=== PATIENT | female | born 1990 | race Two or more races ===

== ENCOUNTER 2017-03-20 09:18 | Day surgery (SDC) | payer OTHER, MEDICAID ==
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
[~2017-03-20 09:18] MED LIST: Buffered Lidocaine 0.9% SYRIN* 5 ML/SYR SYRINGE INTRADERM ONE; Midazolam* 1 MG/ML 5 ML VIAL (5 MG) ONE; fentaNYL* 50 MCG/ML 2 ML VIAL (100 MCG VIAL) ONE
[2017-03-20] MEDS ORDERED: HYDROmorphone INJ* 1 MG/ML CARPUJECT SYRINGE IV PRN (09:58)
[2017-03-20] MEDS ORDERED: DiMENhydriNATE IV* 50 MG/ML VIAL IV PUSH PRN (09:58)
[2017-03-20] MEDS ORDERED: oxyCODONE TAB* 5 MG TAB PO PRN (09:58)
[2017-03-20] MEDS ORDERED: Acetaminophen TAB* 325 MG PO PRN (09:58)
[2017-03-20] MEDS ORDERED: Famotidine IV* 10 MG/ML 2 ML (20 mg) ONE (09:59)
[2017-03-20] MEDS ORDERED: ceFAZolin 2 GM PREMIX (*) 50 ML IVPB ONE (10:01)
[2017-03-20] MEDS: Famotidine IV* 10 MG/ML 2 ML (20 mg) IV ONE ×2 (10:11→10:18)
[2017-03-20] MEDS ORDERED: Bupivacaine 0.25% SDV* 30 ML ONE (11:12)
[2017-03-20] MEDS ORDERED: Lidocaine 1% MPF wEPI 200,000* 30 ML SDV ONE (11:12)
[2017-03-20] MEDS ORDERED: Ketorolac INJ* 30 MG/ML 1 ML VIAL ONE (11:50)
[2017-03-20] MEDS ORDERED: Propofol* 10 MG/ML 20 ML BTL IV PUSH ONE (11:50)
[2017-03-20] MEDS ORDERED: Dexamethasone IV* 4 MG/ML 1 ML (4 MG) ONE (11:50)
[2017-03-20] MEDS ORDERED: Lidocaine 2% PF * 5 ML VIAL ONE (11:50)
[2017-03-20] MEDS ORDERED: Ondansetron INJ* 2 MG/ML VIAL ONE (11:50)
[2017-03-20] MEDS ORDERED: DiMENhydriNATE IV* 50 MG/ML VIAL ONE (11:51)
[2017-03-20 12:54] VITALS: BP 104/74
--- NOTE | 2017-03-21 01:02 | OP ---
DATE OF OPERATION: 03/20/17 - [facility] DATE OF : 89 ATTENDING PHYSICIAN: Patricia Tadeo MD PROFESSOR OF COMMUNICATION: KANDICE Arce. An vector control assistant was needed for the entirety of the case to help with positioning, retraction, and was utilized throughout all portions of the case. ANESTHESIOLOGIST: Dr. Kelly. ANESTHESIA: General PRE-OP DIAGNOSIS: Left knee lateral meniscal tear. POST-OP DIAGNOSIS: Left knee lateral meniscal tear with a small amount of mild chondral fraying of the lateral compartment, lateral meniscal cyst. OPERATIVE PROCEDURE: Left knee arthroscopy with chondroplasty of the lateral femoral condyle, partial lateral meniscectomy and decompression of lateral meniscal cyst. INDICATIONS: Krystal Sal is a 26-year-old female who has had a multiple year history of bilateral knee pain as she had a previous meniscal tear and meniscal cyst. She has failed conservative treatment. She has persistent mechanical symptoms. She had MRIs to confirm this previously and she repeated the MRIs while being here in [place], which demonstrated lateral meniscal tears with a lateral meniscal cyst. Risks and benefits of surgery were discussed at length that included but not limited to bleeding, infection, damage to nerves, vessels, surrounding structures, wound nonhealing, persistent pain, need for further surgery, scarring, stiffness, incomplete relief of symptoms, risk of anesthesia, risk of DVT. She has elected to proceed. DESCRIPTION OF PROCEDURE: The patient was greeted in the preoperative area by the attending surgeon. The correct extremity was marked and consent was confirmed. The patient was then brought back to the operating suite. The patient was placed in the supine position on the operating table. She underwent general anesthesia and LMA intubation after which the left leg was prepped and draped in the usual sterile fashion and non-sterile tourniquet was placed high on the proximal thigh. The lateral post was positioned. The leg was prepped and draped with chlorhexidine soap scrub and alcohol wipe and a final prep with ChloraPrep. After appropriate surgical pause indicating site, side, procedure, administration of antibiotics, the knee was intra-articularly injected with 1% lidocaine with epi. The lateral portal was made sharply with the 11 blade. The scope was introduced into the joint. Joint was examined. There were grade 0 changes to the patellofemoral joint. The medial and lateral gutters were without tearing, but there was a small area of evidence of chondral damage along the very edges of the medial and lateral compartment with some fraying; however, the vast majority of the cartilage was grade 0 to 1. The scope was brought into the notch. The medial portal was made in an outside-in fashion. The ligamentum was removed. The ACL and PCL were intact. The medial meniscus was intact with evidence of previous anterior mild tearing, but it had healed back. The medial compartments have grade 0 to 1 changes on the weightbearing zone. The lateral compartment had an unstable complex lateral meniscus tear in the body. This had unstable flaps with a small partially parrot beak style tear. The biters and carolina were used to debride this back. The cyst was then evacuated and decompressed with the carolina and biters. Images were obtained to show the fluid release into the joint. The meniscus was debrided back to a stable layer. Final images were obtained. All fluid and debris were removed from the joint. The wounds were copiously irrigated with sterile saline. The wounds were closed with 3-0 nylon in interrupted fashion. Sterile dressings were applied. The knee was intra-articularly injected with 0.25% Marcaine plain. She was awoken from anesthesia and transferred to the PACU in stable condition. POSTOPERATIVE PLAN: She will be weightbearing as tolerated with crutches for the first 3 to 5 days, discharged on pain medications as well as aspirin for the first 10 days. She will be allowed range of motion as tolerated. I will see her back in 10 to 14 days. DVT prophylaxis considered, but deferred due to no previous personal or family history. [id number]/[facility] #: [id number] FAXTON HOSPITALDeniz
== END 2017-03-20 13:38 | disposition home or self-care (01) ==
LOC: OREAST 09:18
PROVIDERS: ATTEND Orthopaedic Surgery
DX: M23.200 Derangement of unspecified lateral meniscus due to old tear or injury, right knee (principal); F17.210 Nicotine dependence, cigarettes, uncomplicated; F41.8 Other specified anxiety disorders; G44.89 Other headache syndrome
CPT/HCPCS: 81025; J0690; J1100; J1240; J1885; J2001; J2250; J2405; J2704; J3010

== ENCOUNTER 2017-07-10 10:39 | Day surgery (SDC) | payer OTHER, MEDICAID ==
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
[~2017-07-10 10:39] MED LIST changes: +Dexamethasone IV* 4 MG/ML 1 ML (4 MG) IV SLOW PU ONE; +Famotidine IV* 10 MG/ML 2 ML (20 mg) IV ONE; -Midazolam* 1 MG/ML 5 ML VIAL (5 MG) ONE; -fentaNYL* 50 MCG/ML 2 ML VIAL (100 MCG VIAL) ONE
[2017-07-10] MEDS ORDERED: ceFAZolin 2 GM PREMIX (*) 2 GM/50 ML BAG IVPB ONE (11:14)
[2017-07-10] MEDS ORDERED: Dexamethasone IV* 4 MG/ML 1 ML (4 MG) ONE (11:14)
[2017-07-10] MEDS ORDERED: Famotidine IV* 10 MG/ML 2 ML (20 mg) ONE (11:15)
[2017-07-10] MEDS ORDERED: Lidocaine 1% MPF wEPI 200,000* 30 ML SDV ONE (12:23)
[2017-07-10] MEDS ORDERED: Bupivacaine 0.25% SDV* 30 ML ONE (12:23)
[2017-07-10] MEDS ORDERED: Midazolam* 1 MG/ML 2 ML VIAL (2 MG) ONE (12:45)
[2017-07-10] MEDS ORDERED: fentaNYL* 50 MCG/ML 2 ML VIAL (100 MCG VIAL) ONE (12:45)
[2017-07-10] MEDS ORDERED: Naloxone* 0.4 MG/ML 1 ML VIAL IV PRN (12:53)
[2017-07-10] MEDS ORDERED: oxyCODONE/Acetamin 5/325 MG* TAB PO PRN (12:53)
[2017-07-10] MEDS ORDERED: HYDROcodone/ACETAMIN 5-325 MG* 1 TAB PO PRN (12:53)
[2017-07-10] MEDS ORDERED: fentaNYL* 50 MCG/ML 2 ML VIAL (100 MCG VIAL) IV PRN (12:53)
[2017-07-10] MEDS ORDERED: PROCHLORPERAZINE INJ 5 MG/ML 2 ML VIAL IV PRN (12:53)
[2017-07-10] MEDS ORDERED: Lidocaine 2% PF * 5 ML VIAL ONE (12:58)
[2017-07-10] MEDS ORDERED: Propofol* 10 MG/ML 20 ML BTL IV PUSH ONE (12:58)
[2017-07-10] MEDS ORDERED: Ketorolac INJ* 30 MG/ML 1 ML VIAL ONE (12:58)
[2017-07-10] MEDS ORDERED: EPHEDrine (Pressors)* 50 MG/ML VIAL ONE (13:07)
[2017-07-10] MEDS ORDERED: Ondansetron INJ* 2 MG/ML VIAL ONE (13:35)
[2017-07-10 14:14] VITALS: BP 109/70
--- NOTE | 2017-07-11 06:22 | OP ---
CC: PCP, [facility] * DATE OF OPERATION: 07/10/17 - [facility] DATE OF : [birth year] SURGEON: Patricia Tadeo MD TRAFFIC POLICE OFFICER: KANDICE Arce ANESTHESIOLOGIST: Dr. Ackerman. ANESTHESIA: General. PRE-OP DIAGNOSIS: Right knee lateral meniscus tear with meniscal cyst and anterior medial meniscus tear. POST-OP DIAGNOSIS: Right knee lateral meniscus tear with meniscal cyst and anterior medial meniscus tear. OPERATIVE PROCEDURE: 1. Right knee arthroscopy with partial medial and partial lateral meniscectomy. 2. Anterior synovectomy. 3. Decompression of meniscal cyst. COMPLICATIONS: None. ESTIMATED BLOOD LOSS: Minimal. INDICATIONS: Krystal Sal is a 26-year-old female, she has had a right lateral meniscus tear for some time with a meniscal cyst. She had failed conservative management and interested in treating this operatively. Risks and benefits of surgery were discussed at length and include, but not limited to bleeding; infection; damage to nerves, vessels, surrounding structures; wound nonhealing; persistent pain; need for further surgery; scarring; stiffness; incomplete relief of symptoms and risks of anesthesia. She has elected to proceed. DESCRIPTION OF PROCEDURE: The patient was greeted in the preoperative area by the attending surgeon. The correct extremity was marked and consent was confirmed. The patient was then brought back to the operating suite where she was placed in supine position on the operating table. She then underwent general anesthesia with LMA intubation after which an unsterile tourniquet was placed high on the proximal thigh. The lateral post was positioned. The right lower extremity was then prepped and draped in the usual sterile fashion beginning with chlorhexidine soap, scrub, and alcohol wipe, and a final prep with ChloraPrep. After appropriate surgical pause indicating site, side, procedure, and administration of antibiotics, the knee was intra-articularly injected with 1% lidocaine with epi. An anterolateral port was made with an 11-blade. The scope was introduced into the joint. Joint was examined. There was abundant synovitis anteriorly, medially, and laterally that was present. This extended under the fat pad as well. The medial portal was made in an outside-in fashion. The abundant synovitis was then removed using the shaver, which helped to expose the ligamentum, which was removed. The ACL was found to be intact, but was fairly diminutive. The PCL was intact. The knee was placed in the medial compartment. The medial meniscus was intact in the back anteriorly. There was a small amount of partial tearing that was present. This was debrided back using the carolina. There was fissuring of the medial femoral condyle, but no albin unstable cartilage flaps. There was grade 1 changes to the medial femoral condyle, grade 0 to 1 changes in the medial plateau. The knee was placed in a [id number] position. There was abundant synovitis that was present anteriorly, which was all removed using the shaver, which exposed the lateral meniscus. There was evidence of a posterior longitudinal tear that had healed almost all the way. It was left alone. There was partial tearing and fraying of the root of the meniscus as well as the body. There was tearing anteriorly. This was debrided back. There was a cyst that was identified that was then decompressed using an 18-gauge needle. The anterior horn of the meniscus was intact, but part of the anterolateral body had some fraying. This was debrided back using the carolina. Once the partial meniscectomies were complete, the remainder of the synovitis was removed with the knee placed in extension, the patellofemoral joint was examined. There was grade 0 to 1 changes. Small area of fraying on the patellofemoral joint, but it did not require chondroplasty. Trochlea had grade 0 to 1 changes. The wounds were copiously irrigated with sterile saline. The portals were closed with 3-0 nylon. The knee was intra-articularly injected with 0.25% Marcaine plain. She was awoken from anesthesia and transferred to PACU in stable condition. POSTOPERATIVE PLAN: She will be weightbearing as tolerated with crutches for 3 to 5 days. She will be discharged on pain medication. DVT prophylaxis considered, but deferred due to no previous personal or family history. I will see the patient back in 10 to 14 days. [id number]/[facility] #: [id number] HAIDER
== END 2017-07-10 14:49 | disposition home or self-care (01) ==
LOC: OREAST 10:39
PROVIDERS: ATTEND Orthopaedic Surgery
DX: M23.200 Derangement of unspecified lateral meniscus due to old tear or injury, right knee (principal); M23.203 Derangement of unspecified medial meniscus due to old tear or injury, right knee; F17.210 Nicotine dependence, cigarettes, uncomplicated; G44.89 Other headache syndrome; Z87.820 Personal history of traumatic brain injury
CPT/HCPCS: 81025; J0690; J1100; J1885; J2001; J2250; J2405; J2704; J3010

== ENCOUNTER 2018-09-23 19:47 | Emergency (ER) | payer OTHER, MEDICAID ==
--- OUTSIDE RECORDS SUMMARY | 2018-09-23 19:51 | XMS REPORT | Continuity of Care Document ---
:1990 External Reference #:[id number] Author Name Joshua Clemente M.D. Address [address] [place] [address] Care Team Providers Name Role Phone Tricia Mae MD Care Team Information [employer] [facility] Consultant [facility] Primary [facility] Physician Unavailable Payers Date Identification Numbers Payment Provider Subscriber Effective: 2017 Policy Number: [id number] [facility] David Sal Group Number: [id number] [address] Group Name: [place] [address] PayID: [id number] Advance Directives Description No Information Available Problems Date Description Provider Status Onset: 09/07/2018 Mild intermittent asthma Joshua Clemente M.D. Active Onset: 05/12/2017 Cough Joshua Clemente M.D. Active Onset: 03/10/2017 Urticaria Joshua Clemente M.D. Active Onset: 03/10/2017 Allergic rhinitis due to pollen Joshua Clemente M.D. Active Family History Date Family Member(s) Observation Comments General Urticaria First Brother Urticaria Social History Type Date Description Comments Sex Unknown Marital Status Legal Status: Never Lives With Roommate Home Environment Lives in a newer 2nd floor apartment in the [facility] Home Environment Water Source: [facility] Home Environment Does not use air oracle ascp consultant Home Environment Stairs are present Home Environment There is no basement Home Environment Down Comforter Home Environment Mattress is over 10 years old Home Environment Regular Mattress Home Environment Mattress is not encased in an allergy proof case Home Environment Pillows are not encased in an allergy proof case Home Environment Pillows are polyester Home Environment Does not use a dehumidifier Home Environment There are no draperies in the home Home Environment The home is polo Home Environment Uses forced air heating Home Environment Does not have an air conditioner Home Environment The floors are carpeted Smoke-Free Home is smoke-free Smoke-Free Work is smoke-free Pets None Occupation Student ETOH Use Occasionally consumes alcohol Recreational Drug Use Denies Drug Use Tobacco Use Start: Unknown End: Patient is a former smoker Unknown Smoking Status Reviewed: 03/13/17 Patient is a former smoker Allergies, Adverse Reactions, Alerts Date Description Reaction Status Severity Comments 03/08/2017 Ciprofloxacin Nausea and Vomiting, Urticaria, Active dizzy, unfocused 03/08/2017 Sulfa Unknown Active Medications Medication Date Status Form Strength Qnty SIG Indications Ordering Provider Ventolin HFA Active Aerosol 108(90Base) 8gm 2 every J45.20 Joshua 019 mcg/Act 4 hours Luis Felipe Clemente as needed Montelukast Active Tablets 10mg 90tabs 1 by J45.20 Joshua Sodium 019 mouth Luis Felipe Clemente every day Loratadine Active Capsules 10mg take one Unknown 000 10 mg tab daily Ibuprofen Active Tablets 800mg Unknown 000 Ibuprofen 0 Active Tablets 200mg as Unknown 000 needed Susi Active Unknown 000 Immunizations CPT Code Status Date Vaccine Lot # [id number] Given Unknown Influenza Vaccine Vital Signs Date Vital Result Comment 09/07/2018 12:01pm Height 63 inches 5'3" Weight 114.00 lb Weight 51.710 kg Respiratory Rate 20 /min Heart Rate 76 /min O2 % BldC Oximetry 98 % BP Systolic 107 mmHg BP Diastolic 60 mmHg BMI (Body Mass Index) 20.2 kg/m2 05/12/2017 3:08pm Height 63 inches 5'3" Weight 120.00 lb Weight 54.432 kg Respiratory Rate 18 /min Heart Rate 82 /min O2 % BldC Oximetry 98 % BP Systolic 104 mmHg BP Diastolic 65 mmHg BMI (Body Mass Index) 21.3 kg/m2 03/10/2017 11:03am Height 63 inches 5'3" Weight 117.00 lb Weight 53.071 kg Respiratory Rate 18 /min Heart Rate 94 /min O2 % BldC Oximetry 99 % BP Systolic 97 mmHg BP Diastolic 66 mmHg BMI (Body Mass Index) 20.7 kg/m2 Results Description No Information Available Procedures Date Code Description Status 03/10/2017 55092 Skin Test Scratch # Of Units ____ Completed Encounters Type Date Location Provider Dx Diagnosis Office Visit 09/07/2018 11:40a Kira Clemente M.D. J30.1 Allergic rhinitis due to pollen L50.9 Urticaria, unspecified J45.20 Mild intermittent asthma, uncomplicated Office Visit 05/12/2017 3:00p Kira Clemente M.D. J30.1 Allergic rhinitis due to pollen L50.9 Urticaria, unspecified R05 Cough Office Visit 03/10/2017 11:00a Kira Clemente M.D. J30.1 Allergic rhinitis due to pollen L50.9 Urticaria, unspecified Plan of Treatment 09/07/2018 - Joshua Clemente M.D.J30.1 Allergic rhinitis due to pollenRecommendations:we did discussed the option of Immunotherapy [place] Urticaria, unspecifiedFollow up:prnRecommendations: continue with Claritin 10 mg ,ok to double the dose for now 4 weeks or so and if the symptoms betterthan to go back on 1 tab po once a day add the Montelukast 10 mg 1 tab po once a day we did discussed her situation (so the hives or her breathing issues will be responsive to Immunotherapy(based on skin testing)J45.20 Mild intermittent asthma, uncomplicatedNew Medication:Ventolin HFA 108(90 Base) mcg/Act - 2 every 4 hours as neededMontelukast Sodium 10 mg - 1 by mouth every dayRecommendations:keep an eye on the frequent use of rescue inhaler use (ventolin to be used 2 puff every 4-6 hour as needed)
[2018-09-23 20:04] VITALS: BP 110/65
--- NOTE | 2018-09-23 20:46 | UC ---
Complaint Female HPI - HPI Summary HPI Summary: ONSET LAST NIGHT OF URINARY FREQUENCY AND URGENCY. THIS MORNING HAD DYSURIA AND HEMATURIA. NO FEVER, BACK PAIN OR NAUSEA. - History Of Current Complaint Chief Complaint: UCGU Stated Complaint: BLOOD IN URINE Time Seen by Provider: 09/23/18 20:13 Hx Obtained From: Patient Hx Last Menstrual Period: 06/01/18 Onset/Duration: Gradual Onset, Lasting Hours, Still Present Timing: Constant Severity Initially: Moderate Severity Currently: Moderate Pain Intensity: 0 Pain Scale Used: 0-10 Numeric Character: Burning Aggravating Factor(s): Urination Alleviating Factor(s): Nothing Associated Signs And Symptoms: Negative: Fever, Back Pain, Nausea - Allergies/Home Medications Allergies/Adverse Reactions: Allergies Allergy/AdvReac Type Severity Reaction Status Date / Time ciprofloxacin Allergy Hallucinati Verified 09/23/18 20:07 ons iodine Allergy Hallucinati Verified 09/23/18 20:07 ons Sulfa (Sulfonamide Allergy Unknown Verified 09/23/18 20:07 Antibiotics) Reaction Details ENVIRONMENTAL Allergy Unknown Uncoded 07/10/17 11:43 Reaction Details nuts Allergy itchy Uncoded 07/10/17 11:43 purple grapes Allergy Hives Uncoded 07/10/17 11:43 Home Medications: Home Medications Loratadine 20 mg PO DAILY 09/23/18 [History Confirmed 09/23/18] Minipill 1 tab PO DAILY 09/23/18 [History Confirmed 09/23/18] PMH/Surg Hx/FS Hx/Imm Hx Previously Healthy: Yes - Surgical History Surgical History: Yes Surgery Procedure, Year, and Place: CRANIOTOMY 2008[place]. Left knee - 2017 [facility] [place] - Family History Known Family History: Positive: Non-Contributory - Social History Alcohol Use: Occasionally Alcohol Amount: SOCIALLY- 5-6 DRINKS WHEN GOES OUT Substance Use Type: None Smoking Status (MU): Former Smoker Type: Cigarettes Amount Used/How Often: 2-5 CIGARETTES PER DAY X 3 YEARS Have You Smoked in the Last Year: Yes Review of Systems All Other Systems Reviewed And Are Negative: Yes Constitutional: Positive: Negative Respiratory: Positive: Negative Cardiovascular: Positive: Negative Gastrointestinal: Positive: Negative Genitourinary: Positive: Dysuria, Hematuria, Frequency, Urgency Physical Exam Triage Information Reviewed: Yes Appearance: Well-Appearing, No Pain Distress, Well-Nourished Vital Signs: Initial Vital Signs Temp 98.6 F 09/23/18 19:58 Pulse 92 09/23/18 19:58 Resp 16 09/23/18 19:58 BP 110/65 09/23/18 19:58 Pulse Ox 100 09/23/18 19:58 Laboratory Last Values POC Urine Color Yellow 09/23/18 20:29 POC Urine Clarity Cloudy 09/23/18 20:29 POC Urine pH 6.5 (5-9) 09/23/18 20:29 POC Ur Specif [place] 1.025 (1.010-1.030) 09/23/18 20:29 POC Urine Protein 3+ (Negative) A 09/23/18 20:29 POC Ur Glucose (UA) Negative (Negative) 09/23/18 20: POC Urine Ketones Negative (Negative) 09/23/18 20:29 POC Urine Blood 3+ (Negative) A 09/23/18 20:29 POC Urine Nitrite Positive (Negative) A 09/23/18 20:29 POC Urine Bilirubin Negative (Negative) 09/23/18 20:29 POC Urine Urobilinogen 0.2 (Negative) 09/23/18 20:29 POC U Leukocyte Esteras 2+ (Negative) A 09/23/18 20:29 Eyes: Positive: Conjunctiva Clear ENT: Positive: Hearing grossly normal Neck: Positive: Supple Respiratory: Positive: No respiratory distress, No accessory muscle use Cardiovascular: Positive: Pulses Normal Abdomen Description: Positive: Nontender, Soft. Negative: CVA Tenderness (R), CVA Tenderness (L), Distended, Guarding Musculoskeletal: Positive: No Edema Neurological: Positive: Alert Psychological: Positive: Age Appropriate Behavior Skin: Negative: Rashes Complaint Female Dx - Differential Dx/Diagnosis Provider Diagnosis: UTI (urinary tract infection) Discharge - Sign-Out/Discharge Documenting (check all that apply): Patient Departure All imaging exams completed and their final reports reviewed: No Studies - Discharge Plan Condition: Stable Disposition: HOME Prescriptions: Cephalexin CAP* [Keflex 500 CAP*] 500 mg PO BID #[id number] cap Patient Education Materials: Urinary Tract Infection in Women (ED) Referrals: [facility] [Provider Group] - If Needed Additional Instructions: WE WILL SEND YOURF URINE FOR CULTURE AND CALL YOU IF YOUR TREATMENT NEEDS TO BE CHANGED. STAY WELL HYDRATED. IF YOU DEVELOP MORE FREQUENT UTI AGAIN I WOULD STRONGLY ENCOURAGE YOU TO FOLLOW UP WITH UROLOGY TO ENSURE NO OTHER UNDERLYING CONDITION. - Billing Disposition and Condition Condition: STABLE Disposition: Home
[2018-09-23] MEDS ORDERED: Cephalexin CAP* 500 MG PO ONE (20:50)
== END 2018-09-23 21:00 | disposition home or self-care (01) ==
LOC: UCEAST 19:47
DX: N39.0 Urinary tract infection, site not specified (principal); R31.9 Hematuria, unspecified; Z88.1 Allergy status to other antibiotic agents; Z88.3 Allergy status to other anti-infective agents; Z91.018 Allergy to other foods; Z88.2 Allergy status to sulfonamides; Z87.891 Personal history of nicotine dependence
CPT/HCPCS: 81003; 87077; 87086; 87186; 99212; A9270-GY; G0463